=== PATIENT | male | born 1960 | race Caucasian/White ===

== ENCOUNTER 2018-01-07 09:13 | Observation (INO) | payer BC ==
[~2018-01-07] VITALS: Ht 182.9 cm; Wt 114.4 kg
[~2018-01-07 09:13] MED LIST: ALEVE220 MG OR; DIOVAN320 MG; NAPROSYN500 MG PO; NO MEDS; SINGULAIR10 MG
--- NOTE | 2018-01-07 09:26 | NUR ---
TO RETURN TO LOBBY TO AWAIT OPEN TX ROOM
--- NOTE | 2018-01-07 09:50 | NUR ---
to room 10 via w/c. family at side
[2018-01-07] MEDS ORDERED: METO25TAB PO (09:51)
[2018-01-07] MEDS ORDERED: LOSARTAN POT50 MG PO (09:51)
[2018-01-07] MEDS ORDERED: HYDROCHLOROT25 MG PO (09:52)
[2018-01-07] MEDS ORDERED: ZYRTEC10 MG PO (09:52)
[2018-01-07] MEDS ORDERED: GABAPENTIN100 MG PO (09:53)
--- NOTE | 2018-01-07 10:45 | NUR ---
IV INITIATED AND LABS COLLECTED. PT REPORTS 5/10 PAIN TO THE LEFT TEMPORAL LOBE AREA. PT MAEW AND DENIES ANY WEAKNESS. PT AWARE OF PLAN OF CARE AND WAIT TIME. CALL BLOOM WITHIN REACH.
[2018-01-07 11:08] LABS: HEMATOCRIT 40.4 % (39.0-50.0); HEMOGLOBIN 14.3 g/dl (14.0-18.0); IMMATURE GRANULOCYTES 0.5 % (0.0-1.0); MEAN CELL VOLUME 88.6 fL CALC (80.0-100.0); MEAN CORPUSCULAR HGB 31.4 pG CALC (26.0-32.0); MEAN CORPUSCULAR HGB CONC 35.4 g/L CALC (32.0-36.0); NEUT# 4.36 thou/uL (1.82-7.42); RED BLOOD COUNT 4.56 mill/uL (4.70-6.10); RED CELL DISTRI WIDTH 11.9 % (11.5-15.5)
[2018-01-07 11:20] LABS: ANION GAP 15 (6-22 (CALC)); BUN 16 mg/dL (9-20); BUN/CREATININE RATIO 14 (12-20 (CALC)); CARBON DIOXIDE 25 mmol/l (22-30); CHLORIDE 102 mmol/l (95-108); CREATININE 1.1 mg/dL (0.7-1.3); GFR > 60 ML/MIN (>=60 (CALC)); GFR FOR AFR.AMER. > 60 ML/MIN (>=60 (CALC)); POTASSIUM 4.2 mmol/l (3.5-5.1); SODIUM 139 mmol/l (137-146)
--- NOTE | 2018-01-07 11:30 | NUR ---
PT PAIN NOW 01/12. MD AT BEDSIDE TO DISCUSS RESULTS AND WAIT TIME. CALL BLOOM WITHIN REACH. WILL CONTINUE TO MONITOR.
--- NOTE | 2018-01-07 11:39 | NUR ---
SBAR PRINTED TO FLOOR
[2018-01-07 12:06] LABS: URINE BILIRUBIN - DIPSTICK NEGATIVE (NEGATIVE); URINE BLOOD DIPSTICK NEGATIVE (NEGATIVE); URINE CLARITY CLEAR; URINE COLOR YELLOW; URINE GLUCOSE - DIPSTICK NEGATIVE (NEGATIVE); URINE KETONE NEGATIVE (NEGATIVE); URINE LEUK ESTERASE NEGATIVE (NEGATIVE); URINE NITRITE - DIPSTICK NEGATIVE (Negative); URINE PH 5.5 (4.5-8.0); URINE PROTEIN - DIPSTICK NEGATIVE (NEG-TRACE); URINE UROBILINOGEN - DIPSTICK 0.2 E.U./dL (0.2)
--- NOTE | 2018-01-07 12:20 | NUR ---
report called to lizet snider.
--- NOTE | 2018-01-07 13:10 | NUR ---
PT REPORTS INCREASE IN HEAD PAIN. MD NOTIFIED, AWAITING NEW ORDERS.
--- NOTE | 2018-01-07 13:19 | NUR ---
Admission Note Report Given to: SBAR PRINTED TO FLOOR Transported by: Wheelchair X Stretcher Transported with: X Nurse Transporter X Patent IV O2 X Front Load Trash Truck Driver
--- NOTE | 2018-01-07 13:20 | NUR ---
PT ARRIVED BY STRETCHER ACCOMPANIED. ABLE TO AMBULATE IN THE ROOM. AND HAD SOME PERIODS OF DIZZINESS. ENCOURAGED TO CALL FOR ASSISTANCE.
[2018-01-07 13:32] VITALS: BP 142/87
--- NOTE | 2018-01-07 15:00 | NUR ---
ASSESSMENT IS COMPLETED: PT HAS HEADACHE AND NECK PAIN. GAVE MEDICATIONS ORDERED. PHYSICAL THERAPY IN TO DO AN EPLY MANUEVER. AND STATED" WHEN WE PUT PRESSURE ON THE NECK NO DIZZINESS ONLY PAIN". IV SITE IS FREE FROM REDNESS OR EDEMA. HR IS REG,PULSES ARE STRONG X4. CONTINUE TO OBSERVE AND MONITOR.
--- NOTE | 2018-01-07 15:18 | NUR ---
Spoke to pt on med education rounds. Pt complains of continuing headache that feels like "200 lbs of pressure" and radiates down to neck and into back of eyes. Pt denies aura. Notes blurry vision. Nurse was alerted. Pt had no further questions or concerns.
--- NOTE | 2018-01-07 16:00 | NUR ---
PT HAD WENT FOR A CT SCAN WITH STAFF. AND RETURNED. IV SITE IS FREE FROM REDNESS OR EDEMA. CONTINUE TO OSBERVE AND MONITOR.
[2018-01-07 19:00] VITALS: BP 126/78
--- NOTE | 2018-01-07 19:15 | NUR ---
REPORT RECEIVED FROM Abi LACY LPN. ORIENTING UNDER PRAVEENA OSUNA. PT LAYING IN BED. DENIES ANY NEEDS AT THIS TIME. BED IN LOW POSITION, CALL LIGHT IN REACH. WILL CONTINUE TO MONITOR.
--- NOTE | 2018-01-07 19:48 | NUR ---
MEDICATED PER REQUEST FOR PAIN.
--- NOTE | 2018-01-07 21:00 | NUR ---
IN WITH PATIENT TO MEDICATED. WENT OVER PT TEACHING. FAMILY AT BEDSIDE. PT INSTRUCTED TO CALL FOR ASSISTANCE FOR HELP TO BATHROOM. BED IN LOW POSITION, CALL LIGHT IN REACH.
--- NOTE | 2018-01-08 | NUR ---
PT DENIES PAIN AT THIS TIME. AWAKENED FOR VS. VSS. BED IN LOW POSITION, CALL LIGHT IN REACH. PT INSTRUCTED TO CALL FOR ASSISTANCE TO BATHROOM.
--- NOTE | 2018-01-08 00:21 | NUR ---
CALL TO RADIOLOGY. CT CSPINE STILL SHOWS ACTIVE. RADIOLOGY CONFIRMED THIS HAS BEEN COMPLETED.
[2018-01-08 00:51] VITALS: BP 116/72
[2018-01-08 04:08] VITALS: BP 131/85
[2018-01-08 06:40] LABS: HEMATOCRIT 37.7 % (39.0-50.0); HEMOGLOBIN 13.2 g/dl (14.0-18.0); MEAN CELL VOLUME 90.6 fL CALC (80.0-100.0); MEAN CORPUSCULAR HGB 31.7 pG CALC (26.0-32.0); RED BLOOD COUNT 4.16 mill/uL (4.70-6.10)
[2018-01-08 06:49] LABS: CHOLESTEROL HDL RATIO 4.1 (<4.4 (CALC))
[2018-01-08 06:51] LABS: ANION GAP 12 (6-22 (CALC)); BUN 17 mg/dL (9-20); BUN/CREATININE RATIO 15 (12-20 (CALC)); CARBON DIOXIDE 26 mmol/l (22-30); CHLORIDE 105 mmol/l (95-108); CREATININE 1.1 mg/dL (0.7-1.3); GFR > 60 ML/MIN (>=60 (CALC)); GFR FOR AFR.AMER. > 60 ML/MIN (>=60 (CALC)); MAGNESIUM 1.9 mg/dL (1.6-2.3); POTASSIUM 4.4 mmol/l (3.5-5.1); SODIUM 140 mmol/l (137-146)
[2018-01-08 08:05] VITALS: BP 150/85
--- NOTE | 2018-01-08 08:05 | NUR ---
ASSESSMENT IS COMPLETED: PT C/O HEADACHE,. IV SITE IS FREE FROM REDNESS OR EDEMA. HAND IS A LITTLE PUFFY, HR IS REG,PULSES ARE STRONG X4,ABD IS SOFT WITH ACTIVE BS. CONTINUE TO OBSERVE AND MONITOR.
[2018-01-08 11:01] VITALS: BP 133/83
--- NOTE | 2018-01-08 12:00 | NUR ---
PT HAS BEEN RELAXING IN BED WITH NO DISTRESS NOTED. IV SITE IS FREE FROM REDNESS OR EDEMA. FAMILY IN THE ROOM.
--- NOTE | 2018-01-08 12:08 | NUR ---
PT TOLERATED PROCEDURE BETTER . CONTINUE TO OSBERVE AND MONITOR.
[2018-01-08] MEDS ORDERED: ANTIVERT PO (13:53)
[2018-01-08] MEDS ORDERED: MEDDOSEPAK PO (13:53)
--- NOTE | 2018-01-08 14:55 | NUR ---
PT RECEIVED DISCHARGE INSTRUCTIONS. IV SITE DISCONTINEUD CATHTER INTACT. TELE MONITOR TAKEN OFF. CONTINUE TO OBSERVE AND MONITOR. FAMILY IN THE ROOM.
--- NOTE | 2018-01-08 14:56 | NUR ---
DISCHARGE INSTRUCTIONS GIVEN ALL BELONGINGS WITH PT. Discharge instructions given. Patient verbalizes understanding of same. Discharged in stable condition via Wheelchair to Home with family. All belongings sent with pt.
--- NOTE | 2018-01-08 17:51 | NUR ---
PATIENT SEEN THIS AM FOR MANUAL MARCY'S MANEUVER. PATIENT WAS FOUND SITTING IN RECLINER. PATIENT REPORTED HE WAS FEELING BETTER TODAY AND HAD LESS DIZZINESS. GAIT BELT APPLIED. PATIENT AMBULATED 15 FEET WITH CGA AND BECAME VERY DIZZY. ATTEMPED MARCY'S MANEUVER ON L AND PATIENT BECAME VERY DIZZY AND NAUSEOUS AND COULD NOT TOLERATE FIRST POSITION AND SAT UP. PATIENT BEGAN TO SWEAT PROFOUSLY AND BREATH HEAVILY. NURSE WAS CALLED IN TO TAKE VITALS AND ATTEND TO PATIENT. RETURNED IN PM TO RE-ATTEMPT MARCY'S MANEUVER. PATIENT FOUND SITTING IN RECLINER. PERFORMED MARCY'S MANEUVER ON L. PATIENT TOLERATED WELL. PATIENT WAS INSTRUCTED TO LIMIT HEAD MOVEMENT FOR 24 HOURS.
== END 2018-01-08 14:52 | disposition home or self-care (01) | DRG 312 ==
LOC: ED 09:13 → ED-I 10:11 → ED 10:11 → ED-I 11:27 → ED 11:38 → MS2 11:39
PROVIDERS: Family Medicine; Nurse Practitioner Family; ADMIT Internal Medicine; ATTEND Internal Medicine
DX: R55 Syncope and collapse (principal); G62.9 Polyneuropathy, unspecified; R42 Dizziness and giddiness; I10 Essential (primary) hypertension; M54.12 Radiculopathy, cervical region; M19.90 Unspecified osteoarthritis, unspecified site; Z98.1 Arthrodesis status
CPT/HCPCS: G0378

== ENCOUNTER 2020-08-23 10:32 | Emergency (ER) | payer BC ==
[~2020-08-23] VITALS: Ht 182.9 cm; Wt 118.0 kg
[~2020-08-23 10:32] MED LIST changes: +ANTIVERT PO; +GABAPENTIN100 MG PO; +HYDROCHLOROT25 MG PO; +LOSARTAN POT50 MG PO; +MEDDOSEPAK PO; +METO25TAB PO; +ZYRTEC10 MG PO
[2020-08-23 11:03] LABS: HEMOGLOBIN 14.2 g/dl (14.0-18.0); IMMATURE GRANULOCYTES 0.7 % (0.0-5.0); MEAN CELL VOLUME 89.5 fL CALC (80.0-100.0); MEAN CORPUSCULAR HGB CONC 34.6 g/dL CAL (32.0-36.0); NEUT# 3.54 thou/uL (1.82-7.42); RED BLOOD COUNT 4.58 mill/uL (4.70-6.10); RED CELL DISTRI WIDTH 12.4 % (11.5-15.5)
[2020-08-23 11:15] LABS: ALBUMIN 4.5 g/dL (3.2-5.0); ALKALINE PHOSPHATASE 84 u/l (38-126); ANION GAP 12 (6-22 (CALC)); BILIRUBIN, TOTAL 0.9 mg/dL (0.0-1.4); BUN 13 mg/dL (9-20); BUN/CREATININE RATIO 12 (12-20 (CALC)); CARBON DIOXIDE 26 mmol/l (22-30); CHLORIDE 101 mmol/l (95-108); CREATININE 1.1 mg/dL (0.7-1.3); GFR > 60 ML/MIN (>=60 (CALC)); GFR FOR AFR.AMER. > 60 ML/MIN (>=60 (CALC)); POTASSIUM 4.3 mmol/l (3.5-5.1); SGOT/AST 37 u/l (17-59); SODIUM 135 mmol/l (137-146); TOTAL PROTEIN 7.4 g/dL (6.3-8.2)
[2020-08-23 11:59] VITALS: BP 153/85
== END 2020-08-23 11:45 | disposition short-term general hospital (02) | DRG 311 ==
LOC: ED 10:32
PROVIDERS: Family Medicine
DX: I20.0 Unstable angina (principal); I10 Essential (primary) hypertension; E66.9 Obesity, unspecified; G62.9 Polyneuropathy, unspecified
CPT/HCPCS: J1644

== ENCOUNTER 2022-01-13 13:02 | Emergency (ER) | payer BC ==
[~2022-01-13] VITALS: Ht 182.9 cm; Wt 117.3 kg
[2022-01-13] MEDS ORDERED: DIOVAN HC1 PO (13:50)
[2022-01-13] MEDS ORDERED: PROTONIX40 M2 PO (13:51)
[2022-01-13] MEDS ORDERED: XYZAL ALLERGY 245 MG PO (13:51)
[2022-01-13] MEDS ORDERED: LIPITOR20 MG PO (13:52)
[2022-01-13] MEDS ORDERED: PERCOCET 10/31 COMBO PO (15:01)
[2022-01-13 15:10] VITALS: BP 108/79
== END 2022-01-13 15:15 | disposition home or self-care (01) | DRG 605 ==
LOC: ED 13:02
DX: S20.212A Contusion of left front wall of thorax, initial encounter (principal); S80.02XA Contusion of left knee, initial encounter; I10 Essential (primary) hypertension; G62.9 Polyneuropathy, unspecified; F17.200 Nicotine dependence, unspecified, uncomplicated; W55.22XA Struck by cow, initial encounter